=== PATIENT | female | born 1960 | race Two or more races ===

== ENCOUNTER 2024-11-08 08:05 | Day surgery (SDC) | payer MEDICARE, SELFPAY ==
[2024-11-07 15:11] VITALS: BMI 36.2
[2024-11-08] VITALS (9 sets, daily range): BP systolic 122–153; BP diastolic 63–76; PULSE 51–71; RESP 12–20; TEMP 36.2; O2SAT 94–100; BMI 36.6
[2024-11-08] MEDS: SODIUM CHLORIDE 0.9% 500 ML 500 ML 20 ML IV (09:45)
[2024-11-08] MEDS: BENZOCAINE 20% (Hurricaine) SPRAY 1 DOSE TOP (09:45)
[2024-11-08] MEDS: MIDAZOLAM INJ 1 MG/ML VIAL 2 ML (ASD USE ONLY) 2 MG IVP (09:49)
[2024-11-08] MEDS: fentaNYL CIT INJ 50 mCg/ML AMP 2ML (ASD USE ONLY) IVP (09:49)
[2024-11-08] MEDS: DiphenhydrAMINE INJ 50 MG/ML VIAL 25 MG IVP (09:49)
== END 2024-11-08 10:44 | disposition home or self-care (01) ==
PROVIDERS: PCP Family Medicine; Referring Provider Internal Medicine Gastroenterology; Visit Provider Internal Medicine Gastroenterology
PROC: (CPT 43239; principal; 2024-11-08 13:30)
DX: K21.00 Gastro-esophageal reflux disease with esophagitis, without bleeding (principal); K44.9 Diaphragmatic hernia without obstruction or gangrene; K29.70 Gastritis, unspecified, without bleeding; E66.9 Obesity, unspecified; Z68.36 Body mass index [BMI] 36.0-36.9, adult
CPT/HCPCS: 43239; J1200; J2250; J3010; J7040; A9270

== ENCOUNTER 2024-11-10 07:40 | Day surgery (SDC) | payer MEDICARE, SELFPAY ==
[2024-11-09 15:13] VITALS: BMI 36.2
[2024-11-10] VITALS (11 sets, daily range): BP systolic 114–151; BP diastolic 63–95; PULSE 52–67; RESP 12–20; TEMP 36.7; O2SAT 97–100; BMI 34.9
[2024-11-10] MEDS: SODIUM CHLORIDE 0.9% 500 ML 500 ML 20 ML IV (09:40)
[2024-11-10] MEDS: MIDAZOLAM INJ 1 MG/ML VIAL 2 ML (ASD USE ONLY) 2 MG IVP (09:50)
[2024-11-10] MEDS: fentaNYL CIT INJ 50 mCg/ML AMP 2ML (ASD USE ONLY) IVP (09:50)
== END 2024-11-10 11:00 | disposition home or self-care (01) ==
PROVIDERS: PCP Family Medicine; Referring Provider Internal Medicine Gastroenterology; Visit Provider Internal Medicine Gastroenterology
PROC: 0DBE8ZX Excision of Large Intestine, Via Natural or Artificial Opening Endoscopic, Diagnostic (ICD-10-PCS; CPT 45380; principal; 2024-11-10 12:15)
DX: K64.9 Unspecified hemorrhoids (principal); K62.89 Other specified diseases of anus and rectum; K63.89 Other specified diseases of intestine
CPT/HCPCS: 45380; J2250; J3010; J7040